=== PATIENT | female | born 1960 | race Two or more races ===

== ENCOUNTER 2017-06-01 12:56 | Outpatient (CLI) | payer OTHER ==
--- NOTE | 2017-06-01 21:00 | Ultrasound Report ---
FINAL REPORT EXAM: US TRANSVAGINAL HISTORY: INTRAMURAL LEIOMYOMA OF UTERUS. TECHNIQUE: Ultrasound pelvis transvaginal PRIORS: None. FINDINGS: There is some limitation in the exam there is large amount bowel gas present Uterus is 10.8 x 3.5 x 5.1 centimeters. Within the body of the uterus anteriorly there is an intramural fibroid measuring 1.3 x 1.4 x 1.5 centimeters Endometrial thickness is 0.75 centimeters. Left ovary is 2.7 x 1.1 x 2.4 centimeters is seen only on the transabdominal study appears grossly unremarkable The right ovary was not visualized No free fluid seen in the cul-de-sac IMPRESSION: Mild endometrial thickening for postmenopausal female Prominent size of the uterus There is intramural fibroid noted 1.5 centimeters anterior midbody of the uterus Limited exam due to large amount of overlying bowel gas Right ovary was not visualized sonographically
--- NOTE | 2017-06-01 21:06 | Ultrasound Report ---
FINAL REPORT EXAM: US PELVIC COMPLETE HISTORY: INTRAMURAL LEIOMYOMA OF UTERUS TECHNIQUE: Ultrasound pelvis transabdominal PRIORS: None. FINDINGS: There is some limitation in the exam there is large amount bowel gas present Uterus is 10.8 x 3.5 x 5.1 centimeters. Within the body of the uterus anteriorly there is an intramural fibroid measuring 1.3 x 1.4 x 1.5 centimeters Endometrial thickness is 0.75 centimeters. Left ovary is 2.7 x 1.1 x 2.4 centimeters is seen only on the transabdominal study appears grossly unremarkable The right ovary was not visualized No free fluid seen in the cul-de-sac IMPRESSION: Mild endometrial thickening for postmenopausal female Prominent size of the uterus There is intramural fibroid noted 1.5 centimeters anterior midbody of the uterus Limited exam due to large amount of overlying bowel gas Right ovary was not visualized sonographically
== END 2017-06-01 12:57 | disposition home or self-care (01) ==
LOC: US 12:56
PROVIDERS: ATTEND Obstetrics & Gynecology
DX: D25.1 Intramural leiomyoma of uterus (principal); R93.8 Abnormal findings on diagnostic imaging of other specified body structures; Z78.0 Asymptomatic menopausal state
CPT/HCPCS: 76830; 76856